=== PATIENT | female | born 1965 ===

== ENCOUNTER 2019-05-18 15:25 | Outpatient (CLI) | payer OTHER ==
[~2019-05-18 15:25] MED LIST: ALLEGRA ALLERG180 MG PO; ATARAX25 MG PO; CALCIUM 600 MG1 EAC1; CLONAZEPAM0.5 MG; DAILY VALUE1 EACH; GILTUSS TR TAB1 EACH PO; LEXAPRO5 MG PO; MILLIPRED DP5 M1; PROMETHAZINE W118 ML PO; TURMERIC 450-51 EACH; ZITHROMAX200 MG PO
== END 2019-05-18 15:30 | disposition home or self-care (01) ==
LOC: RAD 15:25
DX: M54.6 Pain in thoracic spine (principal); M54.5 Low back pain

== ENCOUNTER 2021-05-23 08:21 | Outpatient (CLI) | payer OTHER | END 2021-05-23 08:42 | disposition home or self-care (01) | LOC: MAMO-SONO 08:21 | PROVIDERS: ATTEND Internal Medicine | DX: Z12.31 Encounter for screening mammogram for malignant neoplasm of breast (principal); N60.21 Fibroadenosis of right breast; N60.12 Diffuse cystic mastopathy of left breast ==